=== PATIENT | female | born 1960 | race Caucasian/White ===

== ENCOUNTER 2017-01-18 07:44 | Day surgery (SDC) | payer BC ==
[2017-01-18] MEDS ORDERED: Sodium Chloride 0.9% 5 ML Syringe FLUSH PRN (08:00)
[2017-01-18] MEDS: Sodium Chloride 0.9% 1,000 ML IV SCH (08:31)
[2017-01-18] MEDS ORDERED: Lidocaine 2% 100 MG/5 ML Syringe ONE ×2 (08:51→09:11)
[2017-01-18] MEDS ORDERED: Lidocaine 2% 20 ML MDV ONE (08:53)
[2017-01-18] MEDS ORDERED: fentaNYL 100 MCG/2 ML SDV ONE ×2 (08:54→09:11)
[2017-01-18] MEDS ORDERED: Midazolam 1 MG/ML 2 ML SDV ONE ×2 (08:54→09:11)
[2017-01-18] MEDS ORDERED: Propofol 200 MG/20 ML SDV ONE ×2 (08:55→09:11)
--- NOTE | 2017-01-18 09:09 | PCM.PN ---
- General Info Date of Service: 01/18/17 - Review of Systems Systems Review Comment:: 56-year-old female with known history of Denton's esophagus here for upper endoscopy. She states her last upper endoscopy was about 7 years ago. She takes Prevacid regularly and denies heartburn when she takes this. She is medically stable to proceed today with no significant recent changes in her health status. I discussed the proposed upper endoscopy with the patient. She agrees to proceed accepting risks. - Patient Data Vitals - most recent: Last Vital Signs Temp 97.6 F 01/18/17 08:07 Pulse 106 H 01/18/17 08:07 Resp 16 01/18/17 08:07 BP 147/82 H 01/18/17 08:07 Pulse Ox 95 01/18/17 08:07 Weight - most recent: 103.419 kg Lab Results last 24 hrs: Laboratory Results - last 24 hr 01/18/17 Range/Units 08:12 POC Glucose 182 H (74-106) mg/dl Med Orders - Current: Current Medications Sodium Chloride (Normal Saline) 1,000 mls @ 50 mls/hr IV ASDIRECTED [facility] Last Admin: 01/18/17 08:31 Dose: 50 mls/hr Sodium Chloride (Syrex Flush) 5 ml FLUSH Q8HR PRN PRN Reason: Keep Vein Open Discontinued Medications Fentanyl (Sublimaze) Confirm Administered Dose 100 mcg .ROUTE .STK-MED ONE Stop: 01/18/17 08:55 Lidocaine HCl (Xylocaine 2%) Confirm Administered Dose 100 mg .ROUTE .STK-MED ONE Stop: 01/18/17 08:52 Lidocaine HCl (Xylocaine 2%) Confirm Administered Dose 20 ml .ROUTE .STK-MED ONE Stop: 01/18/17 08:54 Midazolam HCl (Versed 1 Mg/Ml) Confirm Administered Dose 4 mg .ROUTE .STK-MED ONE Stop: 01/18/17 08:55 Propofol (Diprivan 20 Ml) Confirm Administered Dose 200 mg .ROUTE .STK-MED ONE Stop: 01/18/17 08:56 - Problem List Review Problem List Initiated/Reviewed/Updated: Yes - My Orders Last 24 Hours: My Active Orders 01/17/17 11:06 Resuscitation Status Routine 01/17/17 Dinner Nothing Per Oral Diet [DIET] 01/18/17 08:00 Blood Glucose Check, Bedside [RC] ONETIME Peripheral IV Care [RC] . DIRECTED Verify Patient Consent Obtain [RC] ASDIRECTED Sodium Chloride 0.9% [Normal Saline] 1,000 ml IV ASDIRECTED Sodium Chloride 0.9% [Syrex Flush] 5 ml FLUSH Q8HR PRN Peripheral IV Insertion Adult [OM.PC] Routine 01/18/17 08:30 Patient to Empty Bladder [RC] ASDIRECTED - Assessment Assessment:: Denton's esophagus - Plan Plan:: upper endoscopy
--- NOTE | 2017-01-18 09:51 | PCM.OPNOTE ---
- General Post-Op/Procedure Note Date of Surgery/Procedure: 01/18/17 Operative Procedure(s): Upper endoscopy with biopsies Findings: Small hiatal hernia with short segment Denton's esophagus that does not appear to be acutely inflamed and is without nodularity. Mild hyperemia of the gastric antral mucosa. Pre Op Diagnosis: History of Denton's esophagus Post-Op Diagnosis: Hiatal hernia. Denton's esophagus. Gastritis Anesthesia Technique: MAC Primary Surgeon: Luis Lee Pathology: biopsies of distal esophagus and gastric antrum Output, Urine Amount: 0 EBL in mLs: 4 Complications: None Condition: Good
[2017-01-18 11:08] VITALS: BP 122/82
--- NOTE | 2017-01-18 16:13 | OR ---
DATE OF SURGERY: 01/18/2017 SURGEON: Luis Lee MD PREOPERATIVE DIAGNOSIS: History of Denton's esophagus. POSTOPERATIVE DIAGNOSIS: Denton's esophagus, hiatal hernia, gastritis. OPERATION PERFORMED: Esophagogastroduodenoscopy with biopsy. INDICATIONS FOR SURGERY: This 56-year-old female has a known history of Denton's esophagus. She states her last upper endoscopy was about 7-8 years ago. She has also noted a dry feeling in her throat. FINDINGS: The patient appears to have a short-segment of Denton's esophagus about 2 cm in length. The mucosa and of the Denton's esophagus does not appear acutely inflamed and is without nodularity. The patient has a small hiatal hernia. She has mild hyperemia of the antral mucosa near the pylorus, but without visible ulceration. PROCEDURE: The patient was taken to the operating room. She was given intravenous sedation and her throat was topically anesthetized. The esophagus was intubated with the Olympus gastroscope. This was carefully advanced under direct visualization through the esophagus, stomach, and into the duodenum where examination to the fourth portion was performed. After carefully examining the duodenum, the scope was withdrawn into the stomach where full examination of the stomach was performed including retroflexed examination of the fundus. Biopsies of the antrum were taken to rule out H. pylori. The area of the hiatal hernia and distal esophagus were then carefully examined and multiple biopsies were taken at multiple levels in this region as surveillance for her Denton's esophagus. With no sign of complicating process, the scope was then slowly withdrawn and after the scope was removed, the patient was taken from the operating room in satisfactory condition. ESTIMATED BLOOD LOSS: 4 mL. COMPLICATIONS: None. PROGNOSIS: Good. /[id number]/MODL
== END 2017-01-18 11:05 | disposition home or self-care (01) ==
LOC: KA.SDS 07:44
PROVIDERS: ATTEND Surgery
DX: K29.50 Unspecified chronic gastritis without bleeding (principal); B33.20 Viral carditis, unspecified; K44.9 Diaphragmatic hernia without obstruction or gangrene; I10 Essential (primary) hypertension; E11.9 Type 2 diabetes mellitus without complications; E78.5 Hyperlipidemia, unspecified; Z79.899 Other long term (current) drug therapy; Z98.890 Other specified postprocedural states
CPT/HCPCS: 43239; 82962; J2250; J2704; J3010; J7030

== ENCOUNTER 2022-11-07 11:39 | Emergency (ER) | payer BC ==
[2022-11-07 11:54] VITALS: BP 130/80; PULSE 100
== END 2022-11-07 13:20 | disposition home or self-care (01) ==
LOC: KA.ED 11:39
DX: M54.32 Sciatica, left side (principal); I10 Essential (primary) hypertension; E78.00 Pure hypercholesterolemia, unspecified; K21.9 Gastro-esophageal reflux disease without esophagitis; M19.90 Unspecified osteoarthritis, unspecified site; E11.9 Type 2 diabetes mellitus without complications; E66.9 Obesity, unspecified; Z68.35 Body mass index [BMI] 35.0-35.9, adult; Z79.84 Long term (current) use of oral hypoglycemic drugs; Z79.899 Other long term (current) drug therapy
CPT/HCPCS: 99283; 99284

== ENCOUNTER 2024-06-12 07:37 | Day surgery (SDC) | payer MEDICARE, BC ==
[2024-06-12] MEDS ORDERED: Propofol 200 MG/20 ML SDV IV ONE (07:38)
[2024-06-12] MEDS: Ondansetron 4 MG/2 ML SDV IVPUSH ONE (07:58)
[2024-06-12] MEDS: Sodium Chloride 0.9% 1,000 ML IV SCH (07:58)
[2024-06-12] MEDS ORDERED: Sodium Chloride 0.9% 10 ML Syringe FLUSH PRN (08:00)
[2024-06-12] MEDS ORDERED: Midazolam 1 MG/ML 2 ML SDV ONE (08:53)
[2024-06-12] MEDS ORDERED: Glycopyrrolate 0.2 MG/ML SDV ONE (08:53)
[2024-06-12] MEDS ORDERED: Propofol 200 MG/20 ML SDV ONE ×2 (08:53→09:48)
[2024-06-12 11:17] VITALS: BP 126/75; PULSE 91
== END 2024-06-12 11:08 | disposition home or self-care (01) ==
LOC: KA.SDS 07:37
PROVIDERS: ATTEND Surgery
DX: Z12.11 Encounter for screening for malignant neoplasm of colon (principal); D12.3 Benign neoplasm of transverse colon; D12.5 Benign neoplasm of sigmoid colon; K62.1 Rectal polyp; K21.00 Gastro-esophageal reflux disease with esophagitis, without bleeding; K44.9 Diaphragmatic hernia without obstruction or gangrene; I10 Essential (primary) hypertension; E11.9 Type 2 diabetes mellitus without complications; E78.5 Hyperlipidemia, unspecified; F41.9 Anxiety disorder, unspecified; F32.A Depression, unspecified; Z79.84 Long term (current) use of oral hypoglycemic drugs; Z79.85 Long-term (current) use of injectable non-insulin antidiabetic drugs; Z79.899 Other long term (current) drug therapy
CPT/HCPCS: 00813; 82947; 88305; J2250; J2405; J2704; J3490; J7030